=== PATIENT | female | born 1990 | race Caucasian/White ===

== ENCOUNTER 2016-05-19 22:29 | Emergency (ER) | payer MEDICAID ==
[2016-05-19 22:51] VITALS: BP 104/63
[2016-05-20] MEDS ORDERED: AMOXICILLIN TR/POT CLAVULANATE 500-125 MG TAB PO ONE (01:17)
[2016-05-20] MEDS ORDERED: HYDROCODONE/ACETAMINOPHEN 5-325 MG 6 TAB/DSPK PO PRN (01:17)
[2016-05-20] MEDS ORDERED: HYDROCODONE/ACETAMINOPHEN 5-325 MG TABLET PO ONE (01:17)
[2016-05-20] MEDS ORDERED: IBUPROFEN 600 MG TABLET PO ONE (01:21)
--- NOTE | 2016-05-20 01:22 | ER Document Report ---
ED General - General Chief Complaint: Dental Injury Stated Complaint: DENTAL INJURY Notes: Patient is a 25-year-old female who presents with complaints of constant, severe , sharp pain to tooth #16. States that this started yesterday after she chipped the tooth while eating. States the pain is worsened by eating or drinking. She's been trying ibuprofen with minimal to no improvement of the pain. Denies any difficulty breathing or swallowing. Denies any facial swelling or edema. No history of similar symptoms in the past. States he recently moved to the area and does not have a local dentist or primary care doctor. TRAVEL OUTSIDE OF THE [place] IN LAST 30 DAYS: No - Related Data Allergies/Adverse Reactions: No Known Allergies Allergy (Unverified 05/19/16 23:21) Past Medical History - General Information source: Patient - Social History Smoking Status: Current Every Day Smoker Chew tobacco use (# tins/day): No Frequency of alcohol use: None Drug Abuse: Marijuana Lives with: Spouse/Significant other Family History: Reviewed & Not Pertinent Renal/ Medical History: Denies: Hx Peritoneal Dialysis Review of Systems - Review of Systems Notes: Constitutional: Negative for fever. HENT: Negative for sore throat. Eyes: Negative for visual changes. Cardiovascular: Negative for chest pain. Respiratory: Negative for shortness of breath. Gastrointestinal: Negative for abdominal pain, vomiting or diarrhea. Genitourinary: Negative for dysuria. Musculoskeletal: Negative for back pain. Skin: Negative for rash. Neurological: Negative for headaches, weakness or numbness. 10 point ROS negative except as marked above and in HPI. Physical Exam - Vital signs Vitals: Temp Pulse Resp BP Pulse Ox 98.1 F 59 L 16 104/63 100 05/19/16 22:50 05/19/16 22:50 05/19/16 22:50 05/19/16 22:50 05/19/16 22:50 Interpretation: Bradycardic Notes: PHYSICAL EXAMINATION: GENERAL: Well-appearing, well-nourished and in no acute distress. HEAD: Atraumatic, normocephalic. EYES: sclera anicteric, conjunctiva are normal. ENT: There is a fracture with exposure of the [place] of tooth #16. No surrounding abscess,, edema or erythema. No facial swelling NECK: Normal range of motion LUNGS: Normal work of breathing HEART: 2+ radial pulses bilaterally EXTREMITIES: no pitting or edema. No cyanosis. NEUROLOGICAL: No focal neurological deficits. Moves all extremities spontaneously and on command. PSYCH: Normal mood, normal affect. SKIN: Warm, Dry, normal turgor, no rashes or lesions noted. Course - Re-evaluation Re-evalutation: 05/20/16 01:18 Presentation is most consistent with likely an infected tooth #16 secondary to a fracture. Airway is patent. Vitals within normal limits. Patient is able swallow without any difficulty. There is no significant facial swelling. Patient will be started on antibiotics and a limited number of pain medications. I've instructed to follow-up with dentistry as earliest ability for definitive management. Return precautions and follow-up recommendations have been discussed at length. - Vital Signs Vital signs: Temp Pulse Resp BP Pulse Ox 98.1 F 59 L 16 104/63 100 05/19/16 22:50 05/19/16 22:50 05/19/16 22:50 05/19/16 22:50 05/19/16 22:50 Discharge - Discharge Clinical Impression: Pain, dental Condition: Good Disposition: HOME, SELF-CARE Additional Instructions: You have been seen for dental pain. It is very important that you follow-up with a dentist for definitive care. Please return if you develop fever greater than 101, swelling in your face, vomiting, difficulty breathing or swallowing, or any other symptoms that are concerning to you. For pain you should take ibuprofen 600 mg every 6 hours as needed. Prescriptions: Amox Tr/Potassium Clavulanate [Augmentin 875-125 Tablet] 1 tab PO BID 10 Days Hydrocodone/Acetaminophen [[place] 5-325 Tablet] 1 tab PO Q4H PRN #12 tablet PRN Reason:
== END 2016-05-20 01:34 | disposition home or self-care (01) ==
LOC: ER 22:29
DX: K08.89 Other specified disorders of teeth and supporting structures (principal); F17.200 Nicotine dependence, unspecified, uncomplicated; R00.1 Bradycardia, unspecified
CPT/HCPCS: 99282; J3490 ×2